=== PATIENT | female | born 1960 | race Caucasian/White ===

== ENCOUNTER 2017-05-30 12:22 | Inpatient (IN) | payer MEDICAID ==
[~2017-05-30] VITALS: Ht 167.6 cm; Wt 107.5 kg
[2017-05-30 12:35] VITALS: BP 141/54
--- NOTE | 2017-05-30 12:36 | NUR ---
UA specimen collected. Pt sent to lobby to wait for ED bed.
[2017-05-30] MEDS ORDERED: SERT100T PO (12:42)
[2017-05-30] MEDS ORDERED: POTA10TE30 PO (12:47)
[2017-05-30] MEDS ORDERED: GABA300C PO (12:47)
[2017-05-30] MEDS ORDERED: ORE25 PO (12:47)
[2017-05-30] MEDS ORDERED: DIT5 PO (12:47)
[2017-05-30] MEDS ORDERED: ALBU-118 IH (12:47)
[2017-05-30] MEDS ORDERED: METF500T PO (12:47)
[2017-05-30] MEDS ORDERED: FAMO-90 PO (12:47)
[2017-05-30] MEDS ORDERED: ASPI81CT89 PO (12:47)
[2017-05-30] MEDS ORDERED: BECL0.0815 INH (12:47)
[2017-05-30] MEDS ORDERED: MELO15TA11 PO (12:47)
[2017-05-30] MEDS ORDERED: SYN.1 PO (12:47)
[2017-05-30] MEDS ORDERED: LISI10TA11 PO (12:47)
[2017-05-30] MEDS ORDERED: GLIM2TAB PO (12:47)
--- NOTE | 2017-05-30 13:30 | NUR ---
PT TAKEN TO BED 12.
--- NOTE | 2017-05-30 13:35 | NUR ---
RUQ PAIN WITH N/V X2 WEEKS; SEEN AT [facility] X2 WEEK AGO; RX'D WITH ZOFRAN WITH NO IMPROVEMENT. HX HTN, DM, ASTHMA. SKIN IS PINK/WARM/DRY; AAOX4 WITH EVEN AND STEADY GAIT; LUNGS CLEAR BL; PATIENT STATES PAIN OF 10/10 AT THIS TIME; PATIENT POSITIONED FOR COMFORT; HOB ELEVATED; BEDRAILS UP X2; BED DOWN. ER MD MADE AWARE OF PT STATUS.
[2017-05-30] MEDS ORDERED: NACL 0.9% 1,000 ML IV SCH (14:07)
[2017-05-30] MEDS ORDERED: ONDANSETRON 4 MG/2 ML VIAL IVP ONE (14:10)
[2017-05-30] MEDS ORDERED: KETOROLAC 30 MG/ML VIAL IVP ONE (14:10)
[2017-05-30 14:52] LABS: BASOPHILS # (AUTO) 0.2 K/uL (0.00-0.22); EOSINOPHILS # (AUTO) 0.1 K/uL (0-0.4); EOSINOPHILS % (AUTO) 1.6 % (0.0-4.0); HEMATOCRIT 41.1 % (36-48); HEMOGLOBIN 13.2 g/dL (12.0-16.0); LYMPHOCYTES # (AUTO) 1.6 K/uL (2.5-16.5); LYMPHOCYTES % (AUTO) 22.3 % (20.5-51.1); MEAN CORPUSCULAR HEMOGLOBIN 29 pg (27-31); MEAN CORPUSCULAR HGB CONC 32 g/dL (33-37); MEAN CORPUSCULAR VOLUME 89 fL (80-94); MONOCYTES # (AUTO) 0.6 K/uL (0.8-1.0); NEUTROPHILS # (AUTO) 4.8 K/uL (1.8-7.7); NEUTROPHILS % (AUTO) 65.1 % (42.2-75.2); PLATELET COUNT (AUTO) 284 K/uL (140-450); RED BLOOD CELL COUNT(AUTO) 4.62 MIL/uL (4.20-5.40); RED CELL DISTRIBUTION WIDTH 13.7 % (11.6-13.7); WHITE BLOOD COUNT (AUTO) 7.3 K/uL (4.8-10.8)
[2017-05-30 15:05] LABS: ANION GAP 12.1 (8-16); CARBON DIOXIDE 30.1 mmol/L (21-32); CREATININE 1.1 mg/dL (0.6-1.3); POTASSIUM 4.2 mmol/L (3.5-5.1)
[2017-05-30 15:12] LABS: ALBUMIN 3.5 g/dL (3.4-5.0); TOTAL BILIRUBIN 0.3 mg/dL (0.0-1.0)
[2017-05-30] MEDS ORDERED: fentaNYL 0.05 MG/ML VIAL IVP ONE (15:20)
[2017-05-30] MEDS ORDERED: PANTOPRAZOLE 40 MG INJ VIAL IVP ONE (15:20)
[2017-05-30] MEDS ORDERED: ACETAMINOPHEN 325 MG TAB PO PRN (15:35)
[2017-05-30] MEDS ORDERED: ZOLPIDEM 5 MG TAB PO PRN (15:35)
[2017-05-30] MEDS ORDERED: LORazepam 0.5 MG TAB PO PRN (15:35)
[2017-05-30] MEDS ORDERED: ONDANSETRON 4 MG/2 ML VIAL IM/IVP PRN (15:35)
[2017-05-30] MEDS ORDERED: DOCUSATE SODIUM 100 MG GELCAP PO PRN (15:35)
--- NOTE | 2017-05-30 16:53 | NUR ---
Patient will be admitted to care of PAL[facility]. Admited to TELE. Will go to room 105B. Belongings list completed. Report to DEMAR.
[2017-05-30 17:00] VITALS: BP 132/68
[2017-05-30] MEDS: NACL 0.9% 1,000 ML IV SCH (17:00)
--- NOTE | 2017-05-30 17:00 | NUR ---
RECEIVED PT ON UNIT VIA JOAQUIN, PT IS AAOX4, AMBULATORY, IV IS ON THE RIGHT HAND, PATENT, INTACT, FLUSHING WELL, NO S/S OF RESPIRATORY DISTRESS OR DISCOMFORT NOTED, ORIENTED PT TO ROOM, DISCUSSED PLAN OF CARE WITH PT, PT VERBALIZED UNDERSTANDING, SAFETY/FALL PRECAUTIONS ARE IN PLACE, CALL LIGHT IS WITHIN REACH, WILL CONTINUE TO MONITOR.
[2017-05-30 17:04] LABS: CHOL/HDL RATIO 2.7 (1-4.5); FREE T4 (FREE THYROXINE) 1.16 ng/dL (0.76-1.46); MAGNESIUM 1.9 mg/dL (1.8-2.4); THYROID STIMULATING HORMONE 1.65 uIU/mL (0.34-3.74)
[2017-05-30 17:10] LABS: PROTHROMBIN TIME 10.1 secs (10.8-13.4)
[2017-05-30 17:28] LABS: APPEARANCE,URINE CLOUDY (CLEAR); BILIRUBIN,URINE NEGATIVE (NEGATIVE); BLOOD, URINE NEGATIVE (NEGATIVE); COLOR,URINE YELLOW (YELLOW); LEUKOCYTE ESTERASE ,URINE NEGATIVE (NEGATIVE); NITRITE, URINE NEGATIVE (NEGATIVE); UGLUCOSE NEGATIVE (NEGATIVE)
[2017-05-30] MEDS ORDERED: MECLIZINE 25 MG TAB PO PRN (17:30)
[2017-05-30 17:38] LABS: RBC,URINE NONE SEEN /HPF (0-5); URINE AMORPHOUS URATE 4+ /HPF (None Seen); WBC,URINE 0-5 (RARE) /HPF (0-5)
[2017-05-30] MEDS ORDERED: DEXTROSE 50% 50 ML SYR IVP PRN (17:50)
[2017-05-30] MEDS ORDERED: INSULIN LISPRO SLIDING SCALE 100 UNITS/ML VIAL SUBQ PRN (17:50)
[2017-05-30 17:51] LABS: BARBITURATE, URINE NEG. ng/ml (NEG <=200); BENZODIAZEPINE, URINE NEG. ng/mL (NEG <=200); CANNABINOID, URINE POS. ng/mL (NEG <=50); COCAINE, URINE NEG. ng/mL (NEG <=300); OPIATE, URINE NEG. ng/mL (NEG <=2000); PHENCYCLIDINE SCREEN,URINE NEG. ng/mL (NEG <=25)
--- NOTE | 2017-05-30 19:26 | NUR ---
PT ENDORSED TO MAGNETIC DOCTOR NURSE FOR CONTINUITY OF CARE. PT STABLE AT THIS TIME.
--- NOTE | 2017-05-30 19:27 | NUR ---
RECEIVED BEDSIDE REPORT FROM DAY SHIFT NURSE NATE RN, PT STABLE, NO DISTRESS NOTED, FAMILY BY BEDSIDE, IV TO R WRIST 24G RUNNING NS@ 100ML/HR, PT ON ROOM AIR NO SOB, INITIAL ASSESSMENT DONE, ALL SAFETY PRECAUTION MET, WILL CONTINUE TO MONITOR.
[2017-05-30 20:00] VITALS: BP 128/64
[2017-05-30] MEDS: KETOROLAC 15 MG/ML VIAL IM PRN (20:52)
--- NOTE | 2017-05-30 20:52 | NUR ---
PT C/O PAIN 8/10 ON ABD, PAIN MEDICATION GIVEN, PT STABLE, NO DISTRESS NOTED, CALL LIGHT WITHIN REACH, WILL CONTINUE TO MONITOR.
[2017-05-30] MEDS: BLOOD GLUCOSE MONITORING 1 DEV DEV FS SCH (20:56)
[2017-05-31] VITALS: BP 123/67
--- NOTE | 2017-05-31 00:01 | NUR ---
CHECKED ON PT, PT STABLE, NO DISTRESS NOTED, AMBULATED TO BATHROOM AND BACK TO BED, NO DISTRESS NOTED, CALL LIGHT WITHIN REACH, WILL CONTINUE TO MONITOR.
[2017-05-31] MEDS: NACL 0.9% 1,000 ML IV SCH ×2 (01:33→11:33)
--- NOTE | 2017-05-31 01:40 | NUR ---
PT C/O THAT HER IV HURTS, NEW IV INSERTED 24G ON THE R FA, PT TOLERATED WELL, R WRIST 24G IV D/C, CATH INTACT, NO DISTRESS NOTED, CALL LIGHT WITHIN REACH,
[2017-05-31] MEDS: KETOROLAC 15 MG/ML VIAL IM PRN (03:22)
--- NOTE | 2017-05-31 03:22 | NUR ---
PT C/O PAIN IN THE R UPPER QUADRANT OF THE ABD, WITH THE SCALE OF 8/10, PAIN MEDICATION GIVEN, PT TOLERATED WELL, NO DISTRESS NOTED, CALL LIGHT WITHIN REACH, WILL CONTINUE TO MONITOR.
[2017-05-31 04:00] VITALS: BP 117/58
[2017-05-31] MEDS: BLOOD GLUCOSE MONITORING 1 DEV DEV FS SCH ×2 (06:55→12:30)
[2017-05-31 07:14] LABS: BASOPHILS # (AUTO) 0.2 K/uL (0.00-0.22); BASOPHILS % (AUTO) 3.4 % (0.0-2.0); EOSINOPHILS # (AUTO) 0.2 K/uL (0-0.4); EOSINOPHILS % (AUTO) 3.2 % (0.0-4.0); HEMATOCRIT 36.3 % (36-48); HEMOGLOBIN 12.2 g/dL (12.0-16.0); LYMPHOCYTES # (AUTO) 2.4 K/uL (2.5-16.5); LYMPHOCYTES % (AUTO) 37.4 % (20.5-51.1); MEAN CORPUSCULAR HEMOGLOBIN 30 pg (27-31); MEAN CORPUSCULAR HGB CONC 34 g/dL (33-37); MEAN CORPUSCULAR VOLUME 90 fL (80-94); MONOCYTES # (AUTO) 0.5 K/uL (0.8-1.0); MONOCYTES % (AUTO) 8.4 % (1.7-9.3); NEUTROPHILS # (AUTO) 3.2 K/uL (1.8-7.7); NEUTROPHILS % (AUTO) 47.6 % (42.2-75.2); PLATELET COUNT (AUTO) 238 K/uL (140-450); RED BLOOD CELL COUNT(AUTO) 4.04 MIL/uL (4.20-5.40); RED CELL DISTRIBUTION WIDTH 13.6 % (11.6-13.7); WHITE BLOOD COUNT (AUTO) 6.5 K/uL (4.8-10.8)
--- NOTE | 2017-05-31 07:15 | NUR ---
ENDORSED PT TO DAY SHIFT NURSE DRU MURPHY, PT STABLE, NO DISTRESS NOTED, CALL LIGHT WITHIN REACH.
--- NOTE | 2017-05-31 07:17 | NUR ---
RECEIVED PATIENT REPORT AT BEDSIDE FROM NIGHT NURSE, PATIENT IS SLEEPING AND EASILY AROUSABLE. SHE IS AAOX4 AND SHOWS NO S/S OF ACUTE DISTRESS ON ROOM AIR. PATIENT STATES ABD PAIN OF 4/10 THAT IS TOLERABLE AT THIS TIME. IV NOTED ON THE RIGHT FOREARM WITH IVF'S INFUSING WELL, SKIN IS INTACT, ON TELE MONITOR. DISCUSSED POC WITH PATIENT AND SHE VERBALIZED UNDERSTANDING OF CARE, SAFETY AND FALL PRECAUTIONS IN PLACE. BED IN LOW POSITION WITH CALL LIGHT WITHIN REACH.
[2017-05-31 07:57] LABS: ANION GAP 15.6 (8-16); CARBON DIOXIDE 25.2 mmol/L (21-32); POTASSIUM 3.8 mmol/L (3.5-5.1)
[2017-05-31 08:00] VITALS: BP 107/64
[2017-05-31] MEDS ORDERED: GLIMEPIRIDE 2 MG TAB PO SCH (08:00)
[2017-05-31] MEDS ORDERED: metFORMIN 500 MG TAB PO SCH (08:00)
[2017-05-31] MEDS: GABAPENTIN 300 MG CAP PO SCH ×2 (08:28→13:29)
--- NOTE | 2017-05-31 08:38 | NUR ---
MEDICATIONS ARE BEING ADMINISTERED BY HAT BLOCKING MACHINE OPERATOR AND INSTRUCTOR AT THIS TIME.
--- NOTE | 2017-05-31 08:56 | NUR ---
PATIENT HAS BEEN SCREENED AND CATEGORIZED MODERATE NUTRITION RISK. PATIENT WILL BE SEEN WITHIN 3-5 DAYS OF ADMISSION. 06/01/17-06/03/[address]
[2017-05-31] MEDS ORDERED: ASPIRIN 81 MG TAB.CHEW PO SCH (09:00)
[2017-05-31] MEDS ORDERED: FAMOTIDINE 20 MG TAB PO SCH (09:00)
[2017-05-31] MEDS ORDERED: LISINOPRIL 10 MG TAB PO SCH (09:00)
[2017-05-31] MEDS ORDERED: LEVOTHYROXINE 0.1 MG TAB PO SCH (09:00)
[2017-05-31] MEDS ORDERED: HYDROCHLOROTHIAZIDE 25 MG TAB PO SCH (09:00)
[2017-05-31] MEDS ORDERED: SERTRALINE 50 MG TAB PO SCH (09:00)
[2017-05-31] MEDS ORDERED: OXYBUTYNIN 5 MG TAB PO SCH (09:00)
--- NOTE | 2017-05-31 09:27 | NUR ---
FAXED INITIAL REVIEW TO BELLO ROGERS [phone] [facility] [phone] [id number] FAXED INITIAL REVIEW TO MAISHA MARIN [phone] DAVION PHONE [phone]. SPOKE WITH DAVION AND SHE GAVE ME THE NEW FAX NUMBER. Addendum: 05/31/17 at 0958 by Ya Llanos BELL[facility] ROGERS PENDING NUMBER [phone]
--- NOTE | 2017-05-31 09:56 | NUR ---
PATIENT RECEIVED ECHO DONE, UNABLE TO GIVE AM MEDICATION, WILL TRY AT A LATER TIME.
--- NOTE | 2017-05-31 10:10 | NUR ---
ADMINISTERED SCHEDULED MEDICATIONS, PATIENT TOLERATED WELL, STATED TOLERABLE PAIN AT THIS TIME. ALL NEEDS MET, BED IN LOW POSITION WITH CALL LIGHT WITHIN REACH.
[2017-05-31 12:00] VITALS: BP 98/50
--- NOTE | 2017-05-31 12:30 | NUR ---
PATIENT BS IS 67 GAVE JUICE AND JENNY CRACKERS. PATIENT DENIES SOB, PAIN, DIZZINESS, FATIGUE. WILL REASSESS BS IN 15 MIN.
--- NOTE | 2017-05-31 12:45 | NUR ---
PATIENT IS EATING LUNCH NOW AND FINISHED JUICE, PATIENT BS IS 76. PATIENT EDUCATED IN EATING MORE OF HER MEAL D/T LOW BLOOD SUGAR. PATIENT VERBALIZED UNDERSTANDING.
--- NOTE | 2017-05-31 13:31 | NUR ---
ADMINISTERED SCHEDULED MEDICATIONS, PATIENT SWALLOWED WITHOUT DIFFICULTY. ALL NEEDS MET AT THIS TIME.
[2017-05-31] MEDS ORDERED: ACET-2869 PO (14:02)
[2017-05-31] MEDS ORDERED: DOCU-299 PO (14:02)
--- NOTE | 2017-05-31 15:00 | NUR ---
PATIENT HAS BEEN DISCHARGED, ALL PAPERWORK SIGNED, ALL DISCHARGE INSTRUCTIONS AND PRESCRIPTIONS GIVEN, ALL QUESTIONS ANSWERED, ALL BELONGINGS IN PATIENT'S POSSESSION. TELE BOX REMOVED.PATIENT PREFERRED TO WALK AND REFUSED WHEELCHAIR. PATIENT LEFT IN STABLE CONDITION WITH STEADY GAIT WITH FAMILY PRESENT AT SIDE.
--- NOTE | 2017-06-05 11:12 | NUR ---
SPOKE WITH DAVION FROM [facility]. FAXED DISCHARGE SUMMARY TO HER AT [phone]
== END 2017-05-31 15:00 | disposition home or self-care (01) | DRG 812 ==
LOC: MED 12:22 → MTU 15:33
PROVIDERS: ADMIT Family Medicine Sports Medicine; ATTEND Family Medicine Sports Medicine
DX: T43.621A Poisoning by amphetamines, accidental (unintentional), initial encounter (principal); N17.0 Acute kidney failure with tubular necrosis; G92 Toxic encephalopathy; D68.59 Other primary thrombophilia; E87.0 Hyperosmolality and hypernatremia; E11.51 Type 2 diabetes mellitus with diabetic peripheral angiopathy without gangrene; K52.9 Noninfective gastroenteritis and colitis, unspecified; E11.65 Type 2 diabetes mellitus with hyperglycemia; G90.9 Disorder of the autonomic nervous system, unspecified; J44.9 Chronic obstructive pulmonary disease, unspecified; E03.9 Hypothyroidism, unspecified; I10 Essential (primary) hypertension; K21.9 Gastro-esophageal reflux disease without esophagitis; F41.9 Anxiety disorder, unspecified; F32.9 Major depressive disorder, single episode, unspecified; I70.209 Unspecified atherosclerosis of native arteries of extremities, unspecified extremity; M32.9 Systemic lupus erythematosus, unspecified; E66.01 Morbid (severe) obesity due to excess calories; R20.0 Anesthesia of skin; R11.10 Vomiting, unspecified; F12.988 Cannabis use, unspecified with other cannabis-induced disorder; L98.8 Other specified disorders of the skin and subcutaneous tissue; F15.90 Other stimulant use, unspecified, uncomplicated; K57.30 Diverticulosis of large intestine without perforation or abscess without bleeding; Z88.6 Allergy status to analgesic agent; Z88.0 Allergy status to penicillin; Z88.2 Allergy status to sulfonamides; Z68.38 Body mass index [BMI] 38.0-38.9, adult; Z90.49 Acquired absence of other specified parts of digestive tract; Z90.710 Acquired absence of both cervix and uterus; Z98.891 History of uterine scar from previous surgery; Y92.89 Other specified places as the place of occurrence of the external cause
CPT/HCPCS: 36415; 70450; 71045; 80048; 80053; 80305; 81001; 81025; 82150; 82948; 83036; 83605; 83690; 83735; 83880; 84100; 84436; 84439; 84443; 84479; 84484; 85025; 85610; 85730; 87040; 87081; 93005; 93880; 93925; 93970; 96361; 96374; 96375; 99285; C9113; J1815; J1885; J2405; J3010; J7030; Q0092

== ENCOUNTER 2017-12-14 01:40 | Emergency (ER) | payer MEDICAID, OTHER ==
[~2017-12-14] VITALS: Ht 170.2 cm; Wt 162.4 kg
[~2017-12-14 01:40] MED LIST: ACET-2869 PO; ALBU-118 IH; ASPI81CT89 PO; BECL0.0815 INH; DIT5 PO; DOCU-299 PO; FAMO-90 PO; GABA300C PO; GLIM2TAB PO; LISI10TA11 PO; MELO15TA11 PO; METF500T PO; ORE25 PO; POTA10TE30 PO; SERT100T PO; SYN.1 PO
[2017-12-14 01:45] VITALS: BP 137/79
--- NOTE | 2017-12-14 01:50 | NUR ---
PT TAKEN TO BED 12
--- NOTE | 2017-12-14 02:00 | NUR ---
PATIENT PRESENTS TO ED WITH LEFT LOWER LEG ERYTHEMA AND SWELLING X2 DAYS. PATIENT STATES SHE HAS BEEN SOAKING AND WASHING WITH SOAP AND WATER WITH NO RELIEF. PATIENT STATES PAIN 8/10 AT THIS TIME AND UNABLE TO SLEEP. SKIN IS DRY AND INTACT AT THIS TIME. PATIENT DENIES N/V FEVERS AT THIS TIME. ER MD MADE AWARE OF PATIENT STATUS. WILL CONTINUE TO MONITOR.
--- NOTE | 2017-12-14 02:12 | NUR ---
Dr. Garcia evaluating patient at bedside.
[2017-12-14] MEDS ORDERED: traMADol 50 MG TAB PO ONE (02:15)
[2017-12-14] MEDS ORDERED: CLINDAMYCIN 600 MG/4 ML VIAL IM ONE (02:15)
[2017-12-14 02:45] VITALS: BP 137/79
--- NOTE | 2017-12-14 02:45 | NUR ---
Patient discharged with v/s stable. Written and verbal after care instructions given and explained. Patient alert, oriented and verbalized understanding of instructions. Ambulatory with steady gait. All questions addressed prior to discharge. ID band removed. Patient advised to follow up with PMD. Rx of TRAMADOL, MOTRIN, CLINDAMYCIN given. Patient educated on indication of medication including possible reaction and side effects. Opportunity to ask questions provided and answered.
== END 2017-12-14 02:45 | disposition home or self-care (01) ==
LOC: MED 01:40
DX: L03.116 Cellulitis of left lower limb (principal); J45.909 Unspecified asthma, uncomplicated; E11.9 Type 2 diabetes mellitus without complications; I10 Essential (primary) hypertension; Z88.0 Allergy status to penicillin; Z88.2 Allergy status to sulfonamides; Z88.5 Allergy status to narcotic agent; Z79.899 Other long term (current) drug therapy
CPT/HCPCS: 82948; 96372; 99283; J3490

== ENCOUNTER 2023-09-09 15:08 | Emergency (ER) | payer OTHER ==
[~2023-09-09] VITALS: Ht 167.6 cm; Wt 158.8 kg
[~2023-09-09 15:08] MED LIST changes: -ACET-2869 PO; +ASPI-1822 PO; -ASPI81CT89 PO; -DIT5 PO; +GLIM-24 PO; -GLIM2TAB PO; +HYDR-4004 PO; +HYDR-5122 PO; +LISI-486 PO; -LISI10TA11 PO; +METF-346 PO; -METF500T PO; -ORE25 PO; +OXYB5TAB44 PO; +POTA10TA70 PO; -POTA10TE30 PO
[2023-09-09 15:12] VITALS: BP 136/96; PULSE 83; RESP 18; TEMP 97.8; O2SAT 98
[2023-09-09] MEDS ORDERED: ALUMINUM HYD/MAG/SIMETHICONE 30 ML UDC ONE (15:56)
[2023-09-09] MEDS ORDERED: DICYCLOMINE HCL LIQUID 10 MG/5 ML UDC ONE (15:56)
[2023-09-09] MEDS: NACL 0.9% 1,000 ML IV SCH (16:23)
[2023-09-09] MEDS: ONDANSETRON 4 MG/2 ML VIAL IVP ONE (16:25)
[2023-09-09] MEDS: KETOROLAC 30 MG/ML VIAL IVP ONE (16:28)
[2023-09-09] MEDS: ALUMINUM HYD/MAG/SIMETHICONE 30 ML, DICYCLOMINE HCL LIQUID 20 MG, LIDOCAINE VISCOUS 2% ... PO ONE (16:29)
[2023-09-09 17:15] LABS: BASOPHILS % (AUTO) 0.3 % (0.0-2.0); EOSINOPHILS % (AUTO) 0.1 % (0.0-4.0); HEMATOCRIT 41.4 % (36-48); HEMOGLOBIN 13.9 g/dL (12.0-16.0); LYMPHOCYTES # (AUTO) 1.6 K/uL (2.5-16.5); LYMPHOCYTES % (AUTO) 16.6 % (20.5-51.1); MEAN CORPUSCULAR HEMOGLOBIN 30 pg (27-31); MEAN CORPUSCULAR HGB CONC 34 g/dL (33-37); MEAN CORPUSCULAR VOLUME 90.2 fL (80-94); MONOCYTES # (AUTO) 0.3 K/uL (0.8-1.0); MONOCYTES % (AUTO) 3.5 % (1.7-9.3); NEUTROPHILS # (AUTO) 7.8 K/uL (1.8-7.7); NEUTROPHILS % (AUTO) 79.5 % (42.2-75.2); PLATELET COUNT (AUTO) 358 K/uL (140-450); RED BLOOD CELL COUNT(AUTO) 4.59 MIL/uL (4.20-5.40); RED CELL DISTRIBUTION WIDTH 14.1 % (11.6-13.7); WHITE BLOOD COUNT (AUTO) 9.8 K/uL (4.8-10.8)
[2023-09-09 17:28] LABS: ANION GAP 12.2 (8-16); CALCIUM 9.2 mg/dL (8.5-10.1); CARBON DIOXIDE 30.1 mmol/L (21-32); CREATININE 1.1 mg/dL (0.6-1.3); POTASSIUM 3.3 mmol/L (3.5-5.1)
[2023-09-09] MEDS: METOCLOPRAMIDE 10 MG/2 ML INJ VIAL IVP ONE (17:45)
[2023-09-09] MEDS: diphenhydrAMINE 50 MG/ML VIAL IVP ONE (17:46)
[2023-09-09 17:47] LABS: ALBUMIN 3.5 g/dL (3.4-5.0); BILIRUBIN,DIRECT 0.1 mg/dL (0.0-0.3); TOTAL BILIRUBIN 0.6 mg/dL (0.0-1.0); TOTAL PROTEIN, SERUM 8.1 g/dL (6.4-8.2)
[2023-09-09] MEDS: HYDROmorphone PFS 2 MG/ML SYR IVP ONE (18:30)
[2023-09-09] MEDS ORDERED: ESOM20EC PO (19:49)
[2023-09-09] MEDS ORDERED: SUCR-34 PO (19:49)
[2023-09-09 20:31] VITALS: BP 112/48; PULSE 80; RESP 17; TEMP 98; O2SAT 96
== END 2023-09-09 20:31 | disposition home or self-care (01) ==
LOC: MED 15:08
DX: K29.70 Gastritis, unspecified, without bleeding (principal); J45.909 Unspecified asthma, uncomplicated; E11.9 Type 2 diabetes mellitus without complications; I10 Essential (primary) hypertension; E03.9 Hypothyroidism, unspecified; Z88.0 Allergy status to penicillin; Z88.2 Allergy status to sulfonamides; Z79.899 Other long term (current) drug therapy; Z79.4 Long term (current) use of insulin; Z88.5 Allergy status to narcotic agent
CPT/HCPCS: 36415; 74176; 80048; 80076; 82150; 83690; 85025; 96361; 96374; 96375; 99285; J1170; J1200; J1885; J2405; J2765; J7030